=== PATIENT | male | born 1990 | race Caucasian/White ===

== ENCOUNTER 2020-10-04 13:03 | Emergency (ER) | payer SELFPAY ==
[2020-10-04 14:20] VITALS: BP 115/80
== END 2020-10-04 14:21 | disposition home or self-care (01) ==
LOC: ED 13:03
DX: S51.811A Laceration without foreign body of right forearm, initial encounter (principal); F17.210 Nicotine dependence, cigarettes, uncomplicated; X78.8XXA Intentional self-harm by other sharp object, initial encounter